=== PATIENT | male | born 1935 | race Caucasian/White ===

== ENCOUNTER 2017-02-17 15:49 | Emergency (ER) | payer MEDICARE ==
[2013-03-28 14:01] VITALS: BMI 23.8
[~2017-02-17 15:49] MED LIST: BAYER CHEWABLE81 MG PO; BENICAR20 MG PO; FLOMAX0.4 MG PO; LOPID600 MG PO; PLAVIX75 MG PO; ULTRAM50 MG PO
[2017-02-17 16:22] LABS: BASOPHILS 0.7 % (0-2); EOSINOPHILS 5.9 % (0-7); HEMOGLOBIN 13.4 g/dL (13.5-17.5); IMMATURE GRANULOCYTES 0.4 % (0-5); LYMPHOCYTES 20.9 % (15-50); MCH 31.6 pg (26.0-34.0); MCHC 33.5 g/dL (31.0-37.0); MCV 94.3 fL (80.0-100.0); MEAN PLATELET VOLUME 10.6 fL (7.4-10.4); NEUTROPHILS 60.1 % (40-80); PLATELET COUNT 203 10x3/uL (130-400); RBC 4.24 10x6/uL (4.20-6.10); RDW 12.9 % (11.5-14.5); WBC 4.6 10x3/uL (4.8-10.8)
== END 2017-02-17 17:53 | disposition home or self-care (01) ==
LOC: D.ER 15:49
PROVIDERS: Family Medicine
DX: S16.1XXA Strain of muscle, fascia and tendon at neck level, initial encounter (principal); V43.52XA Car driver injured in collision with other type car in traffic accident, initial encounter; Y93.89 Activity, other specified; Y92.410 Unspecified street and highway as the place of occurrence of the external cause

== ENCOUNTER 2018-04-02 17:47 | Emergency (ER) | payer MEDICARE ==
[~2018-04-02] VITALS: Ht 182.9 cm; Wt 84.1 kg
[2018-04-02 17:52] VITALS: Ht 182.9 cm; Wt 84.1 kg
[2018-04-02 18:43] LABS: BASOPHILS 0.4 % (0-2); EOSINOPHILS 4.9 % (0-7); HEMATOCRIT 37.3 % (42.0-54.0); HEMOGLOBIN 12.3 g/dL (13.5-17.5); IMMATURE GRANULOCYTES 0.5 % (0-5); LYMPHOCYTES 9.3 % (15-50); MCH 30.4 pg (26.0-34.0); MCV 92.3 fL (80.0-100.0); MONOCYTES 8.5 % (2-11); NEUTROPHILS 76.4 % (40-80); RBC 4.04 10x6/uL (4.20-6.10); RDW 13.4 % (11.5-14.5); WBC 7.3 10x3/uL (4.8-10.8)
[2018-04-02 18:55] LABS: INR 1.12 (0.85-1.17)
[2018-04-02 19:03] LABS: PLATELET COUNT 152 10x3/uL (130-400)
[2018-04-02 19:22] LABS: ALBUMIN 3.8 g/dL (3.4-5.0); ALKALINE PHOSPHATASE 52 U/L (46-116); ALT (SGPT) 26 U/L (10-68); BILIRUBIN - TOTAL 0.37 mg/dL (0.2-1.3); CALC OSMOLALITY 284 mosm/kg (275-300); CALCIUM 8.5 mg/dL (8.5-10.1); CARBON DIOXIDE 28.8 mmol/L (21.0-32.0); CHLORIDE - SERUM 106 mmol/L (98-107); CREATININE - SERUM 1.3 mg/dL (0.6-1.3); GLUCOSE 96 mg/dL (74-106); POTASSIUM - SERUM 4.3 mmol/L (3.5-5.1); PROTEIN - SERUM 7.1 g/dL (6.4-8.2); SODIUM 140 mmol/L (136-145); UREA NITROGEN 28 mg/dL (7-18); eGFR NON AFRICAN AMERICAN 56 mL/min (90-120)
[2018-04-02 19:34] LABS: C-REACTIVE PROTEIN 0.2 mg/dL (0.0-0.9); CKMB 4.3 U/L (0.0-3.6); CREATINE KINASE 202 UL (21-232)
[2018-04-02 19:43] LABS: TROPONIN-I < 0.017 ng/mL (0.000-0.060)
[2018-04-02] MEDS ORDERED: ULTRAM50 MG PO (20:06)
[2018-04-02 20:31] VITALS: BP 157/89
== END 2018-04-02 20:31 | disposition home or self-care (01) ==
LOC: D.ER 17:47
PROVIDERS: Family Medicine
DX: S09.90XA Unspecified injury of head, initial encounter (principal); V19.9XXA Pedal cyclist (driver) (passenger) injured in unspecified traffic accident, initial encounter; Y93.55 Activity, bike riding; Y92.89 Other specified places as the place of occurrence of the external cause; S00.03XA Contusion of scalp, initial encounter; R07.81 Pleurodynia; I10 Essential (primary) hypertension

== ENCOUNTER 2019-07-10 05:50 | Day surgery (SDC) | payer MEDICARE ==
[2019-07-08 10:04] LABS: BASOPHILS 0.7 % (0-2); EOSINOPHILS 7.2 % (0-7); HEMATOCRIT 43.7 % (42.0-54.0); HEMOGLOBIN 14.2 g/dL (13.5-17.5); IMMATURE GRANULOCYTES 0.4 % (0-5); LYMPHOCYTES 13.3 % (15-50); MCH 31.2 pg (26.0-34.0); MCHC 32.5 g/dL (31.0-37.0); MEAN PLATELET VOLUME 10.1 fL (7.4-10.4); NEUTROPHILS 68.4 % (40-80); PLATELET COUNT 167 10x3/uL (130-400); RBC 4.55 10x6/uL (4.20-6.10); RDW 12.8 % (11.5-14.5); WBC 5.4 10x3/uL (4.8-10.8)
[2019-07-08 10:13] LABS: ANION GAP 8.8 mmol/L (8-16); CALCIUM 9.3 mg/dL (8.5-10.1); CREATININE - SERUM 1.4 mg/dL (0.6-1.3); POTASSIUM - SERUM 4.8 mmol/L (3.5-5.1)
[~2019-07-10] VITALS: Ht 182.9 cm; Wt 87.1 kg
[~2019-07-10 05:50] MED LIST changes: +ACETAMINOPHEN500 M1 PO; +BYSTOLIC5 MG PO; +FLUTICASONE PRO16 GM NASAL; +LIPITOR10 MG PO; +MELATONIN5 MG PO; +STOOL SOFTENER100 M1 PO; +areds 2 PO
[2019-07-10 06:37] VITALS: BP 144/48; Ht 182.9 cm; Wt 87.1 kg
--- NOTE | 2019-07-10 09:12 | NUR ---
0849-REC'D FROM SURGERY.DROWSY,EASILY AROUSED WITH VERBAL STIMULLI.VSS. DENIES PAIN. IV PATENT TO LEFT HAND AT KVO. HARRIS PATENT WITH RED URINE DRAINING AT GRAVITY.
--- NOTE | 2019-07-10 09:13 | NUR ---
0900-FULL LIQUID TO ROOM.DENIES PAIN.
--- NOTE | 2019-07-10 09:16 | NUR ---
0905-PT REPORTS HIS DAUGHTER LEFT HER HOME IN [place] AT 9AM TO COME PICK HIM UP.
--- NOTE | 2019-07-10 09:36 | OP ---
PATIENT NAME: JONA ARCOS MEDICAL RECORD: [id number] LOCATION:[facility] ADMISSION DATE: SURGEON: MICHAEL TAVERA MD DATE OF OPERATION: 07/10/2019 SURGEON: Michael Tavera MD ANESTHESIA: TIVA by Cristofer Leon CRNA. DIAGNOSES: Obstructive BPH, bulbar urethral stricture. PROCEDURES: Direct vision internal urethrotomy (DVIU), UroLift times 4. FINDINGS: Bulbar urethral stricture. There is lateral lobe hyperplasia of the prostate with obstruction. Cystoscopy shows single ureteral orifices bilaterally with no bladder tumors. The bladder was trabeculated. BLOOD LOSS: None. CLINICAL HISTORY: This is an 83-year-old male, who has obstructive voiding symptoms for the past 5 years. He has been on tamsulosin b.i.d. and it does not help the voiding symptoms. He has significant voiding symptoms including urgency, hesitancy and a weak urine flow. He wishes to have the UroLift procedure done today. 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 DESCRIPTION OF PROCEDURE: The patient was given IV sedation. He was placed into lithotomy position and prepped and draped. The UroLift scope was introduced. The penile urethra was clear until the bulbar urethra when we found a focal urethral stricture, which was too narrow for the scope to pass through. We changed to the optic urethrotome and at the 12 o'clock position, the cold knife was used to cut through the stricture. The optic urethrotome was then able to pass through the prostatic urethra, which shows obstruction at the lateral lobes, and then into the bladder. We then switched back to the UroLift scope. Cystoscopy was completed using the UroLift scope. We then implanted 4 UroLift units. Two were placed at the level of the bladder neck at the anterolateral sulcus with one unit being placed on each side. These were placed 1.5 cm distal to the bladder neck. Then, at the level of the verumontanum at the anterolateral sulcus, 2 more units were placed. One unit was placed on each side. This created a nice anterior urethral channel. Because of the bulbar urethral stricture incision, we placed a 16-Portuguese Doan catheter. This will allow the stricture to heal to the diameter of the catheter. I will see him in followup in 2 weeks' time to remove the catheter. TRANSINT:[id number] Voice Confirmation ID: [id number] DOCUMENT ID: [id number] MICHAEL TAVERA MD at 0936 CC: [id number] DICTATION DATE: 07/10/19853 CAD DESIGN ENGINEER: 07/10/19922 [facility] [address] [id number]
--- NOTE | 2019-07-10 16:42 | NUR ---
0915-REMOVED IV FROM LEFT HAND WITH CATH INTACT,DISPOSED INTO SHARPS.COVERED SITE WITH BANDAID. REVIEWED POST OPERATIVE INSTRUCTIONS AND HARRIS CARE WITH PT. VERBALIZED UNDERSTANDING. AWAITING FOR DAUGHTER TO DRIVE HOME
--- NOTE | 2019-07-10 16:44 | NUR ---
1000-ESCORTED OUT VIA W/C WITH DAUGHTER AWAITING TO DRIVE HOME. STABLE,HARRIS PATENT,DISCHARGE PAPERWORK IN HAND.
== END 2019-07-10 10:00 | disposition home or self-care (01) ==
LOC: D.OPS 05:50 → D.PAN 08:00 → D.OPS 08:15 → D.PAN 08:30 → D.OPS 10:00
PROVIDERS: Anesthesiology; ATTEND Urology
DX: N40.1 Benign prostatic hyperplasia with lower urinary tract symptoms (principal); N35.912 Unspecified bulbous urethral stricture, male; R79.89 Other specified abnormal findings of blood chemistry; E11.9 Type 2 diabetes mellitus without complications; E78.1 Pure hyperglyceridemia; E78.5 Hyperlipidemia, unspecified; M1A.9XX0 Chronic gout, unspecified, without tophus (tophi); I13.10 Hypertensive heart and chronic kidney disease without heart failure, with stage 1 through stage 4 chronic kidney disease, or unspecified chronic kidney disease; N18.9 Chronic kidney disease, unspecified; N17.9 Acute kidney failure, unspecified; I25.119 Atherosclerotic heart disease of native coronary artery with unspecified angina pectoris; I48.91 Unspecified atrial fibrillation; M16.9 Osteoarthritis of hip, unspecified; M51.36 Other intervertebral disc degeneration, lumbar region; M54.9 Dorsalgia, unspecified
CPT/HCPCS: 52276; C9740

== ENCOUNTER → 2020-02-19 14:16 | Outpatient (CLI) | payer MEDICARE ==
[2019-07-10 06:37] VITALS: BMI 26.1
[2020-02-19 14:40] LABS: EOSINOPHILS 7.9 % (0-7); HEMATOCRIT 38.1 % (42.0-54.0); HEMOGLOBIN 12.2 g/dL (13.5-17.5); IMMATURE GRANULOCYTES 0.2 % (0-5); LYMPHOCYTES 30.1 % (15-50); MCH 31.4 pg (26.0-34.0); MCV 97.9 fL (80.0-100.0); MEAN PLATELET VOLUME 9.6 fL (7.4-10.4); MONOCYTES 11.8 % (2-11); PLATELET COUNT 190 10x3/uL (130-400); RBC 3.89 10x6/uL (4.20-6.10); WBC 4.8 10x3/uL (4.8-10.8)
[2020-02-19 14:56] LABS: INR 1.1 (0.85-1.17); PROTIME 14.2 SECONDS (11.6-15.0)
== END | disposition home or self-care (01) ==
LOC: D.LAB 14:16
PROVIDERS: ATTEND Neurological Surgery
DX: D69.9 Hemorrhagic condition, unspecified (principal)